=== PATIENT | female | born 1995 | race Hispanic/Latino ===

== ENCOUNTER 2017-07-15 11:48 | Emergency (ER) | payer MEDICAID, OTHER ==
[~2017-07-15 11:48] MED LIST: DOCU-116 PO; IBUP-2071 PO
[2017-07-15] MEDS ORDERED: SODIUM CHLORIDE 0.9% 1000ML 1,000 ML IV ONE (12:54)
[2017-07-15] MEDS ORDERED: KETOROLAC TROMETHAMINE 30MG/ML ONE (12:54)
[2017-07-15] MEDS ORDERED: ONDANSETRON HCL 4 MG/2 ML VIAL ONE (13:08)
[2017-07-15 13:11] LABS: BASOPHILS % (AUTO) 0.1 % (0.0-5.0); EOSINOPHILS % (AUTO) 0.6 % (0.0-8.0); HEMATOCRIT 37.4 % (36-48); LYMPHOCYTES % (AUTO) 12.9 % (21.0-51.0); MEAN CORPUSCULAR HEMOGLOBIN 26.9 pg (27.0-33.0); MEAN CORPUSCULAR HGB CONC 33.2 g/dL (32.0-36.0); MEAN CORPUSCULAR VOLUME 81.1 fL (80-100); MONOCYTES % (AUTO) 4.9 % (3.0-13.0); NEUTROPHILS % (AUTO) 81.5 % (40.0-77.0); PLATELET COUNT (AUTO) 356 K/uL (130-400); RED BLOOD CELL COUNT(AUTO) 4.61 MIL/uL (4.00-5.50); RED CELL DISTRIBUTION WIDTH 14.8 % (11.0-15.5); WHITE BLOOD COUNT (AUTO) 10.2 K/uL (4.8-10.8)
[2017-07-15 13:14] LABS: APPEARANCE,URINE Turbid (CLEAR); BILIRUBIN,URINE Negative (NEGATIVE); COLOR,URINE Dark Yellow (YELLOW); GLUCOSE, URINE (UA) Negative (NEGATIVE); HCG,QUAL RESULT NEGATIVE (NEGATIVE); KETONES,URINE Negative (NEGATIVE); LEUKOCYTE ESTERASE ,URINE Moderate (NEGATIVE); NITRATE,URINE Positive (NEGATIVE); OCCULT BLOOD,URINE Trace (NEGATIVE); PROTEIN,URINE Negative (NEGATIVE)
[2017-07-15 13:17] LABS: CREATININE 0.8 mg/dL (0.5-1.5); POTASSIUM 3.7 mmol/L (3.5-5.1)
[2017-07-15 13:22] LABS: ALBUMIN 3.9 g/dL (3.5-5.0); BILIRUBIN,TOTAL 0.2 mg/dL (0.2-1.0); TOTAL PROTEIN, SERUM 8.7 g/dL (6.0-8.3)
[2017-07-15 13:37] LABS: SQUAMOUS EPITHELIAL CELL,UR Few /LPF (0-2)
[2017-07-15 13:38] LABS: AMORPHOUS SEDIMENT,UR Many /LPF (None Seen); BACTERIA,URINE Moderate /HPF (None Seen); RBC,URINE 0-1 /HPF (0-1)
[2017-07-15] MEDS ORDERED: CEFTRIAXONE SODIUM 1 GM ONE (13:56)
== END 2017-07-15 14:41 | disposition home or self-care (01) ==
LOC: EDH 11:48
DX: K80.80 Other cholelithiasis without obstruction (principal); N39.0 Urinary tract infection, site not specified
CPT/HCPCS: 36415; 76705; 80053; 81001; 81025; 85025; 96361; 96374; 96375; 99285; J0696; J1885; J2405; J7030

== ENCOUNTER 2020-11-02 13:07 | Inpatient (IN) | payer OTHER ==
[~2020-11-02] VITALS: Ht 162.6 cm; Wt 86.1 kg
[2020-11-02 13:16] VITALS: BP 120/74
[2020-11-02 13:39] LABS: BASOPHILS % (AUTO) 0.1 % (0.0-5.0); EOSINOPHILS % (AUTO) 0.2 % (0.0-8.0); HEMATOCRIT 38.1 % (36-48); LYMPHOCYTES % (AUTO) 19.9 % (21.0-51.0); MEAN CORPUSCULAR HEMOGLOBIN 28.3 pg (27.0-33.0); MEAN CORPUSCULAR HGB CONC 32.5 g/dL (32.0-36.0); MONOCYTES % (AUTO) 8.2 % (3.0-13.0); NEUTROPHILS % (AUTO) 71.2 % (40.0-77.0); PLATELET COUNT (AUTO) 340 K/uL (130-400); RED BLOOD CELL COUNT(AUTO) 4.38 MIL/uL (4.00-5.50); RED CELL DISTRIBUTION WIDTH 12.6 % (11.0-15.5)
[2020-11-02 13:47] LABS: CARBON DIOXIDE 32 mmol/L (21-32); CHLORIDE 102 mmol/L (101-111); CREATININE 0.7 mg/dL (0.5-1.5); GLOMERULAR FILTR. RATE CALC 109 mL/min (>60); GLUCOSE,RANDOM 100 mg/dL (70-105); POTASSIUM 4.3 mmol/L (3.5-5.1); SODIUM SERUM 139 mmol/L (136-145); UREA NITROGEN, BLOOD 7 mg/dL (7-18)
[2020-11-02 13:53] LABS: ALANINE AMINOTRANSFERASE 47 U/L (12-78); ALBUMIN 3.6 g/dL (3.5-5.0); AMYLASE 46 U/L (25-115); ASPARTATE AMINOTRANSFERASE 21 U/L (10-37); BILIRUBIN,TOTAL 0.5 mg/dL (0.2-1.0); TOTAL PROTEIN, SERUM 8.3 g/dL (6.0-8.3)
[2020-11-02 13:57] LABS: LIPASE < 50 U/L (114-286)
[2020-11-02 14:39] LABS: APPEARANCE,URINE Cloudy (CLEAR); BILIRUBIN,URINE Negative (NEGATIVE); COLOR,URINE Yellow (YELLOW); GLUCOSE, URINE (UA) Negative (NEGATIVE); KETONES,URINE Negative (NEGATIVE); LEUKOCYTE ESTERASE ,URINE Moderate (NEGATIVE); NITRATE,URINE Negative (NEGATIVE); OCCULT BLOOD,URINE Large (NEGATIVE); PROTEIN,URINE Trace mg/dL (NEGATIVE); UROBILINOGEN,URINE 0.2 mg/dL (0.2-1.0)
[2020-11-02] MEDS ORDERED: 0.9%NACL 1000ML 1,000 ML IV ONE (15:00)
[2020-11-02] MEDS ORDERED: MORPHINE 4 MG SYG IVP ONE (15:00)
[2020-11-02] MEDS ORDERED: ONDANSETRON 4MG INJ IVP ONE (15:00)
[2020-11-02 15:11] LABS: BACTERIA,URINE Few /HPF (None Seen)
[2020-11-02 17:47] VITALS: BP 124/89
[2020-11-02 18:54] VITALS: BP 109/59
[2020-11-02] MEDS ORDERED: ONDANSETRON 4MG INJ IV PRN (19:00)
[2020-11-02] MEDS ORDERED: ACETAMINOPHEN 325 MG TAB PO PRN ×2 (19:00)
[2020-11-02] MEDS ORDERED: ZOSYN 3.375GM+NS 50ML 50 ML IV ONE (19:03)
[2020-11-02] MEDS ORDERED: 0.9%NACL 50ML 50 ML IV ONE (19:04)
[2020-11-02] MEDS: 0.9%NACL 1000ML 1,000 ML IV SCH (19:25)
[2020-11-02] MEDS: FAMOTIDINE 20MG VIAL IV SCH (20:21)
[2020-11-02] MEDS: ZOSYN 3.375GM+NS 50ML 50 ML IV SCH (21:00)
[2020-11-02 22:36] VITALS: BP 108/58
[2020-11-02 23:20] VITALS: BP 127/79
[2020-11-02] MEDS ORDERED: LEVO50TA11 PO (23:40)
[2020-11-03] VITALS (22 sets, daily range): BP systolic 114–140; BP diastolic 64–92
[2020-11-03] MEDS: MORPHINE 2 MG SYG IV PRN ×2 (00:21→22:12)
[2020-11-03] MEDS: ZOSYN 3.375GM+NS 50ML 50 ML IV SCH ×3 (03:20→19:30)
[2020-11-03] MEDS: 0.9%NACL 1000ML 1,000 ML IV SCH ×2 (05:00→15:31)
[2020-11-03 05:23] LABS: BASOPHILS % (AUTO) 0.1 % (0.0-5.0); EOSINOPHILS % (AUTO) 0.3 % (0.0-8.0); HEMATOCRIT 33.7 % (36-48); LYMPHOCYTES % (AUTO) 13.1 % (21.0-51.0); MEAN CORPUSCULAR HGB CONC 32.9 g/dL (32.0-36.0); MEAN CORPUSCULAR VOLUME 85.1 fL (79-99); MONOCYTES % (AUTO) 9.2 % (3.0-13.0); NEUTROPHILS % (AUTO) 76.7 % (40.0-77.0); PLATELET COUNT (AUTO) 259 K/uL (130-400); RED BLOOD CELL COUNT(AUTO) 3.96 MIL/uL (4.00-5.50); RED CELL DISTRIBUTION WIDTH 12.5 % (11.0-15.5); WHITE BLOOD COUNT (AUTO) 13.4 K/uL (4.8-10.8)
[2020-11-03 05:34] LABS: BILIRUBIN,TOTAL 0.5 mg/dL (0.2-1.0); CREATININE 0.8 mg/dL (0.5-1.5); TOTAL PROTEIN, SERUM 6.7 g/dL (6.0-8.3)
[2020-11-03] MEDS: FAMOTIDINE 20MG VIAL IV SCH ×2 (08:39→19:30)
[2020-11-03] MEDS ORDERED: LIDOCAINE HCL 1% 20 ML VIAL ONE (12:10)
[2020-11-03] MEDS ORDERED: BUPIVACAINE/EPI/PF 0.25% 30ML VIAL IJ ONE (12:10)
[2020-11-03] MEDS ORDERED: LACTATED RINGERS 1000ML 1,000 ML IV ONE (12:40)
[2020-11-03] MEDS ORDERED: MIDAZOLAM HCL 1 MG/ML 2ML VIAL ONE (12:57)
[2020-11-03] MEDS ORDERED: SUCCINYLCHOLINE CHLORIDE 20 MG/ML 10 ML VIAL ONE (12:57)
[2020-11-03] MEDS ORDERED: LIDOCAINE PF 100MG/5ML (2%) SYRINGE 5ML ONE (12:57)
[2020-11-03] MEDS ORDERED: DEXAMETHASONE SOD PHOSPHATE 10MG/ML 1ML VIAL ONE (12:57)
[2020-11-03] MEDS ORDERED: NEOSTIGMINE 5MG/5ML SYR IV ONE (12:58)
[2020-11-03] MEDS ORDERED: ROCURONIUM 10MG/1ML SYR 10 MG/ML ML ONE (12:58)
[2020-11-03] MEDS ORDERED: GLYCOPYRROLATE 1 MG/5 ML SYRINGE ONE (12:58)
[2020-11-03] MEDS ORDERED: ONDANSETRON 4MG INJ ONE (12:58)
[2020-11-03] MEDS ORDERED: PROPOFOL 10 MG/ML 20ML VIAL IV ONE (12:58)
[2020-11-03] MEDS ORDERED: FENTANYL CITRATE PF 50 MCG/1 ML 2ML VIAL ONE ×2 (12:59→13:27)
[2020-11-03] MEDS ORDERED: MEPERIDINE-PF 25 MG/ML SYG ONE ×2 (14:30→14:39)
[2020-11-03] MEDS: OXYCODONE/ACETAMIN 5/325MG TAB PO PRN (20:35)
[2020-11-04] VITALS: BP 109/68
[2020-11-04 04:00] VITALS: BP 119/72
[2020-11-04] MEDS: 0.9%NACL 1000ML 1,000 ML IV SCH ×2 (04:19→11:00)
[2020-11-04] MEDS: ZOSYN 3.375GM+NS 50ML 50 ML IV SCH ×2 (04:19→13:28)
[2020-11-04] MEDS: FAMOTIDINE 20MG VIAL IV SCH (07:26)
[2020-11-04] MEDS: MORPHINE 2 MG SYG IV PRN (07:27)
[2020-11-04 08:32] VITALS: BP 128/78
[2020-11-04 11:19] VITALS: BP 120/68
[2020-11-04] MEDS: OXYCODONE/ACETAMIN 5/325MG TAB PO PRN (13:28)
[2020-11-04 16:21] VITALS: BP 109/68
[2020-11-04] MEDS ORDERED: ONDA4TAB4 PO (18:42)
[2020-11-04] MEDS ORDERED: AMOX-429 PO (18:42)
[2020-11-04] MEDS ORDERED: ACET1TAB25 PO (18:42)
[2020-11-04] MEDS ORDERED: POLY17PO4 PO (18:42)
== END 2020-11-04 19:30 | disposition home or self-care (01) | DRG 418 ==
LOC: EDH 13:07 → EDHIP 18:50 → 3DH 22:58
PROVIDERS: ADMIT Internal Medicine; ATTEND Internal Medicine
PROC: 0FT44ZZ Resection of Gallbladder, Percutaneous Endoscopic Approach (ICD-10-PCS; principal; 2020-11-04)
DX: K80.00 Calculus of gallbladder with acute cholecystitis without obstruction (principal); N39.0 Urinary tract infection, site not specified; K82.8 Other specified diseases of gallbladder; Z83.3 Family history of diabetes mellitus
CPT/HCPCS: 36415; 76705; 80053; 81001; 81025; 82150; 83690; 85025; 85651; 86140; 87088; G0378; J0330; J1100; J2001; J2175; J2250; J2270; J2405; J2543; J2704; J2710; J3010; J3490; J7030; J7120

== ENCOUNTER 2021-01-08 23:29 | Emergency (ER) | payer OTHER ==
[~2021-01-08] VITALS: Ht 162.6 cm; Wt 84.4 kg
[~2021-01-08 23:29] MED LIST changes: +ACET1TAB25 PO; +AMOX-429 PO; +LEVO50TA11 PO; +ONDA4TAB4 PO; +POLY17PO4 PO
[2021-01-08 23:31] VITALS: BP 145/89
[2021-01-09] MEDS ORDERED: DiphenhydrAMINE HCL 50 MG/ML VIAL IV ONE
[2021-01-09] MEDS ORDERED: 0.9%NACL 1000ML 1,000 ML IV ONE
[2021-01-09] MEDS ORDERED: METOCLOPRAMIDE 10 MG/2 ML VIAL IVP ONE
[2021-01-09] MEDS ORDERED: FAMOTIDINE 20MG VIAL IV ONE
[2021-01-09 00:47] LABS: BASOPHILS % (AUTO) 0.1 % (0.0-5.0); EOSINOPHILS % (AUTO) 0.4 % (0.0-8.0); HEMATOCRIT 39.5 % (36-48); LYMPHOCYTES % (AUTO) 10.1 % (21.0-51.0); MEAN CORPUSCULAR HEMOGLOBIN 28.1 pg (27.0-33.0); MEAN CORPUSCULAR HGB CONC 33.7 g/dL (32.0-36.0); MEAN CORPUSCULAR VOLUME 83.5 fL (79-99); MONOCYTES % (AUTO) 7.9 % (3.0-13.0); NEUTROPHILS % (AUTO) 80.9 % (40.0-77.0); PLATELET COUNT (AUTO) 159 K/uL (130-400); RED BLOOD CELL COUNT(AUTO) 4.73 MIL/uL (4.00-5.50); RED CELL DISTRIBUTION WIDTH 12.8 % (11.0-15.5)
[2021-01-09 00:53] LABS: CREATININE 0.8 mg/dL (0.5-1.5); POTASSIUM 4.6 mmol/L (3.5-5.1)
[2021-01-09 00:54] LABS: APPEARANCE,URINE Cloudy (CLEAR); BILIRUBIN,URINE Negative (NEGATIVE); COLOR,URINE Yellow (YELLOW); GLUCOSE, URINE (UA) Negative (NEGATIVE); KETONES,URINE Trace mg/dL (NEGATIVE); LEUKOCYTE ESTERASE ,URINE Trace (NEGATIVE); NITRATE,URINE Negative (NEGATIVE); OCCULT BLOOD,URINE Small (NEGATIVE); PROTEIN,URINE Negative (NEGATIVE); UROBILINOGEN,URINE 0.2 mg/dL (0.2-1.0)
[2021-01-09 00:57] LABS: ALBUMIN 3.5 g/dL (3.5-5.0); BILIRUBIN,TOTAL 0.4 mg/dL (0.2-1.0); TOTAL PROTEIN, SERUM 8.1 g/dL (6.0-8.3)
[2021-01-09 00:58] VITALS: BP 131/79
[2021-01-09 00:58] LABS: HCG,QUAL RESULT NEGATIVE (NEGATIVE)
[2021-01-09 01:11] LABS: BACTERIA,URINE Moderate /HPF (None Seen); RBC,URINE 0-1 /HPF (0-1)
[2021-01-09 01:13] LABS: SQUAMOUS EPITHELIAL CELL,UR Few /HPF (0-2)
[2021-01-09] MEDS ORDERED: LOPERAMIDE HCL 2 MG CAP PO ONE (02:30)
[2021-01-09 03:12] VITALS: BP 139/74
[2021-01-09] MEDS ORDERED: DIPH1TAB PO (03:45)
[2021-01-09] MEDS ORDERED: PROMETHAZINE GEL TD (03:45)
== END 2021-01-09 03:59 | disposition home or self-care (01) ==
LOC: EDH 23:29
DX: U07.1 COVID-19 (principal); K52.9 Noninfective gastroenteritis and colitis, unspecified; E86.0 Dehydration; D72.829 Elevated white blood cell count, unspecified; Z79.1 Long term (current) use of non-steroidal anti-inflammatories (NSAID); Z79.899 Other long term (current) drug therapy; Z86.16 Personal history of COVID-19; Z90.49 Acquired absence of other specified parts of digestive tract
CPT/HCPCS: 36415; 80053; 81001; 81025; 82270; 82550; 83690; 85025; 87077; 87088; 87186; 96361; 96374; 96375; 99284; J1200; J2765; J3490

== ENCOUNTER → 2021-06-21 | Outpatient (CLI) | payer OTHER ==
[~2021-06-21] MED LIST changes: +DIPH1TAB PO; +PROMETHAZINE GEL TD
== END | disposition home or self-care (01) ==
LOC: RAH 10:30
PROVIDERS: ATTEND Internal Medicine Gastroenterology
DX: R11.2 Nausea with vomiting, unspecified (principal); R10.10 Upper abdominal pain, unspecified; Z90.49 Acquired absence of other specified parts of digestive tract
CPT/HCPCS: 76700; 78264; A9541

== ENCOUNTER 2023-12-22 13:40 | Emergency (ER) | payer BC, OTHER ==
[~2023-12-22] VITALS: Ht 160 cm; Wt 12.2 kg
[~2023-12-22 13:40] MED LIST changes: +ACET-2079 PO; -ACET1TAB25 PO
[2023-12-22 14:23] LABS: BASOPHILS # (AUTO) 0.02 K/uL (0.00-0.20); BASOPHILS % (AUTO) 0.2 % (0.0-5.0); EOSINOPHILS # (AUTO) 0.08 K/uL (0.00-0.70); EOSINOPHILS % (AUTO) 0.8 % (0.0-8.0); HEMATOCRIT 36.6 % (36-48); IMMATURE GRANULOCYTE ABSOLUTE 0.06 K/uL (0-1); LYMPHOCYTES # (AUTO) 2.6 K/uL (1.0-4.8); LYMPHOCYTES % (AUTO) 25.9 % (21.0-51.0); MEAN CORPUSCULAR HEMOGLOBIN 26.2 pg (27.0-33.0); MEAN CORPUSCULAR HGB CONC 32.5 g/dL (32.0-36.0); MEAN CORPUSCULAR VOLUME 80.6 fL (79-99); MONOCYTES # (AUTO) 0.9 K/uL (0.1-1.0); MONOCYTES % (AUTO) 8.6 % (3.0-13.0); NEUTROPHILS # (AUTO) 6.5 K/uL (1.8-7.7); NEUTROPHILS % (AUTO) 63.9 % (40.0-77.0); PLATELET COUNT (AUTO) 373 K/uL (130-400); RED BLOOD CELL COUNT(AUTO) 4.54 MIL/uL (4.00-5.50); RED CELL DISTRIBUTION WIDTH 14.2 % (11.0-15.5); WHITE BLOOD COUNT (AUTO) 10.1 K/uL (4.8-10.8)
[2023-12-22 14:34] LABS: CREATININE 0.8 mg/dL (0.5-1.0); POTASSIUM 3.7 mmol/L (3.5-5.1)
[2023-12-22] MEDS ORDERED: PRED50TA2 PO (17:40)
[2023-12-22] MEDS ORDERED: VALA100031 PO (17:40)
[2023-12-22 18:06] VITALS: BP 146/90; PULSE 90; RESP 16; O2SAT 100
== END 2023-12-22 18:07 | disposition home or self-care (01) ==
LOC: EDH 13:40
DX: G51.0 Bell's palsy (principal); G43.909 Migraine, unspecified, not intractable, without status migrainosus; Z79.899 Other long term (current) drug therapy; Z90.49 Acquired absence of other specified parts of digestive tract
CPT/HCPCS: 36415; 80048; 85025